=== PATIENT | male | born 1995 | race Caucasian/White ===

== ENCOUNTER 2020-03-19 09:47 | Emergency (ER) | payer BC ==
[~2020-03-19] VITALS: Ht 172.7 cm; Wt 144.2 kg
[2020-03-19 10:01] VITALS: BP 168/86
--- NOTE | 2020-03-19 10:10 | NUR ---
PATIENT AMBULATED TO ER BED 05
--- NOTE | 2020-03-19 10:21 | NUR ---
PT C/O LEFT EYE PAIN, TEARING, FOREIGN BODY SENSATION, ERYTHEMA S/P INJURIED BY A PICE OF METAL WHILE WORKING. DENIES BLURRY VISION AT THIS TIME. OS:20/20 OD: 20/20 OU: 20/20 PMH: NONE
[2020-03-19] MEDS ORDERED: FLUORESCEIN OPTH STRIP 1 MG ONE (10:35)
[2020-03-19] MEDS ORDERED: FLUORESCEIN OPTH STRIP 1 MG OP ONE (10:35)
--- NOTE | 2020-03-19 10:36 | NUR ---
DR. ALLAN AT BEDSIDE.
[2020-03-19] MEDS ORDERED: TETRACAINE HCL/PF 0.5% OPTH 4 ML BTL OP ONE (11:20)
--- NOTE | 2020-03-19 11:27 | NUR ---
DR. ALLAN AT BEDSIDE.
[2020-03-19 11:54] VITALS: BP 168/86
--- NOTE | 2020-03-19 11:54 | NUR ---
Patient discharged with v/s stable. Written and verbal after care instructions given and explained. Patient alert, oriented and verbalized understanding of instructions. Ambulatory with steady gait. All questions addressed prior to discharge. ID band removed. Patient advised to follow up with PMD. Rx of ERYTHROMYCIN, MOTRIN AND NORCO given. Patient educated on indication of medication including possible reaction and side effects. Opportunity to ask questions provided and answered.
== END 2020-03-19 11:54 | disposition home or self-care (01) ==
LOC: MED 09:47
DX: T15.02XA Foreign body in cornea, left eye, initial encounter (principal); Z88.0 Allergy status to penicillin; X58.XXXA Exposure to other specified factors, initial encounter
CPT/HCPCS: 65220; 99284

== ENCOUNTER 2020-05-21 16:43 | Emergency (ER) | payer BC ==
[~2020-05-21] VITALS: Ht 172.7 cm; Wt 136.1 kg
--- NOTE | 2020-05-21 16:50 | NUR ---
PT TAKEN TO BED 7.
[2020-05-21 16:53] VITALS: BP 125/67
[2020-05-21] MEDS ORDERED: ASPIRIN 81 MG TAB.CHEW PO ONE (16:55)
--- NOTE | 2020-05-21 16:58 | NUR ---
Dr. Avendano at bedside for pt MSE.
[2020-05-21 17:02] VITALS: BP 133/67
--- NOTE | 2020-05-21 17:51 | NUR ---
Patient discharged with v/s stable. Written and verbal after care instructions given and explained. Patient verbalized understanding. Ambulatory with steady gait. All questions addressed prior to discharge. Advised to follow up with PMD.
== END 2020-05-21 17:51 | disposition home or self-care (01) ==
LOC: MED 16:43
DX: R07.9 Chest pain, unspecified (principal); F17.200 Nicotine dependence, unspecified, uncomplicated; Z88.0 Allergy status to penicillin
CPT/HCPCS: 71045; 93005; 99283

== ENCOUNTER 2021-06-11 22:24 | Emergency (ER) | payer BC ==
[~2021-06-11] VITALS: Ht 175.3 cm; Wt 127.0 kg
[2021-06-11 22:35] VITALS: BP 152/94
[2021-06-11] MEDS ORDERED: BACITRACIN OINT 500 UNITS/GM PKT TP ONE (23:00)
[2021-06-11] MEDS ORDERED: IBUP-2213 PO (23:09)
[2021-06-11 23:14] VITALS: BP 152/94
== END 2021-06-11 23:14 | disposition home or self-care (01) ==
LOC: MED 22:24
DX: S60.511A Abrasion of right hand, initial encounter (principal); S60.512A Abrasion of left hand, initial encounter; S50.811A Abrasion of right forearm, initial encounter; S50.812A Abrasion of left forearm, initial encounter; Z88.0 Allergy status to penicillin; W22.8XXA Striking against or struck by other objects, initial encounter; Y93.89 Activity, other specified; Y92.89 Other specified places as the place of occurrence of the external cause; Y99.8 Other external cause status
CPT/HCPCS: 99282